=== PATIENT | male | born 1985 ===

== ENCOUNTER → 2023-08-31 | Outpatient (CLI) | payer BC ==
[2023-08-31 10:39] LABS: Urine WBC None Seen /hpf (0 - 3)
[2023-08-31 10:50] LABS: Basophils # (auto) 0 10 ^3/uL (0-0.2); Basophils % (auto) 0.6 % (0.0-2.0); Eosinophils # (auto) 0.2 10 ^3/uL (0-0.8); Eosinophils % (auto) 2.5 % (0.0-7.0); Hematocrit 44.2 % (41.0-53.0); Hemoglobin 15.2 g/dL (13.5-17.5); Lymphocytes # (auto) 2.5 10 ^3/uL (0.4-5.4); Lymphocytes % (auto) 33.2 % (10.0-50.0); Mean Corpuscular Hemoglobin 31.2 pg (28.0-32.0); Mean Corpuscular Hgb Conc. 34.3 g/dL (32.0-36.0); Mean Corpuscular Volume 91.1 fL (80.0-100.0); Monocytes # (auto) 0.4 10 ^3/uL (0-1.3); Monocytes % (auto) 5.9 % (0.0-12.0); Neutrophils # (auto) 4.4 10 ^3/uL (1.6-8.6); Neutrophils % (auto) 57.8 % (37.0-80.0); Nucleated Red Blood Cells % 0.1 %; Red Blood Cells 4.86 10^6/uL (4.5-5.90); Red Cell Distribution Width 12.9 % (11.8-14.3); White Blood Cell 7.6 10^3/uL (4.4-10.8)
[2023-08-31 11:05] LABS: Alanine Aminotransferase 83 U/L (7-40); Albumin 4.9 g/dL (3.2-4.8); Alkaline Phosphatase 77 U/L (46-116); Anion Gap 5 (5-15); Aspartate Aminotransferase 39 U/L (13-40); BUN/Creatinine Ratio 9.1 (10.0-20.0); Bilirubin, Total 1.3 mg/dL (0.2-1.0); Blood Urea Nitrogen 8 mg/dL (9-23); Calcium 9.5 mg/dL (8.5-10.1); Carbon Dioxide 31 mmol/L (20-30); Chloride 103 mmol/L (98-107); Cholesterol 106 mg/dL (< 200); Glucose 95 mg/dL (74-106); HDL Cholesterol 31 mg/dL (40-59); LDL Cholesterol 56 mg/dL (< 100); Potassium 3.9 mmol/L (3.5-5.1); Sodium 139 mmol/L (136-145); Total Protein 7.6 g/dL (5.7-8.2); Triglycerides 145 mg/dL (< 150)
[2023-08-31 11:14] LABS: Urine Bacteria NONE SEEN /hpf (None Seen); Urine Blood Negative /uL (Negative); Urine Clarity Clear (Clear); Urine Color Yellow (Yellow); Urine Protein, UAD Negative (Negative); Urine Specific Gravity 1.016 (1.001-1.035); Urine Urobilinogen Normal (Negative); Urine pH 7.5 (5.0-8.0)
== END | disposition home or self-care (01) ==
LOC: LAB 09:32
PROVIDERS: ATTEND Nurse Practitioner
DX: I10 Essential (primary) hypertension (principal); E78.5 Hyperlipidemia, unspecified; R73.9 Hyperglycemia, unspecified
CPT/HCPCS: 36415; 80053; 80061; 81001; 83036; 84153; 84443; 85025